=== PATIENT | female | born 1980 | race Caucasian/White ===

== ENCOUNTER 2023-01-30 16:00 | Outpatient (RCR) | payer OTHER, SELFPAY ==
--- NOTE | 2023-01-01 12:52 | HP.PTEVAL ---
Patient's Visit Information BRANDI CHAPMAN is a 42 year old F referred to Physical Therapy by SHERYL HENDERSON with a diagnosis of chronic plantarfasciitis. Date of Evaluation: 01/01/23 Physical Therapist: Lion Mccain, DENITAT, OCS, CSCS - Visit Plan Frequency: 3x /Week Duration: 4-6 Weeks Plan: 3x/week for 3-6 as needed for... 1. US to R PF origin nonthermal. 2. DTR to R PF adn gastroc/soleus area. 3. stretch PF and gastroc/soleus, teach eccentrics when able. 4. TENS with ice if painful at rest. Consider DN, ionto and RPW if improvements not shown in two weeks. Heel lift and night splint benefits educated to patient with pics form shop - Subjective Have insoles due to plantasfasciitis. Taking ibuprofen and stretching and icing adn ball roll and not helping. R foot for 6-7 months of pain insidious onset. Can only vaccuum 15 mintues and could not stand uip. Pain is on heel and back of heal. pain is 9/10 at times and has used crutches. Was typically that bad getting out of bed in am. Two days a go it hurt when she was elevating it and got sharp pain. Sleep is interrupted infrequently. Insoles did not help. Low heal helps. 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 limps through hallways effecting LB. Not walking right. Effects carpenter apprentice. Stretches include calf using a towel or strap and does it with coffee in morning or thouighout day. When it hurts. Holds it 20 seconds. Cannot exercise, cannot walk with . Does bike sometimes. - Pain R foot Pain Intensity (Out of 10): 3 Pain Intensity Range: 0, 9 Comment: worse end of day and first am - Objective Walks with R antalgia avoiding hell strike into PT I. Trasnfers I bed and chair. Walks gingerly but able. Tender to palpation R medial achilles insertion adn into medial lateral calcaneus at PF origin. moderately to max. AROM ankle 0 DF R and 2 on L. PF adn inv/eversion WNL and symmetrical. Painful to DF at achilles. strength is 4/5 DF R and pain with PF 4 and 4+ inv and eversion. 4+ L side. Pes planus B heel and insoles being worn properly today with padding under, asked her to place it over. reflexes 2/3 patella and achilles. Sensation LE WNL to gross lgiht touch. - Balance/Special Test Scores Lower Extremity Functional Score: 28 - Goals Goal 1:: Pateint feel 50% better in overall pain and manageable with home ex. Goal Time Frame: 2-4 Weeks Goal 2:: Pain 2/10 at worst and able to walk without gait deviations Goal Time Frame: 4-6 Weeks Goal 3:: LEFS score 55 Goal Time Frame: 4-6 Weeks Goal 4:: patient able to work without increased foot pain Goal Time Frame: 4-6 Weeks - Rehabilitation Potential Physical Therapy Diagnosis: inflammed R pf needs help managing. Rehabilitation Potential: Fair - Anticipated Interventions Patient/Client Instruction: Educate patient on: Condition, Plan of Care For the Purpose of:: To decrease pain, To increase ROM, To improve nutrient delivery to tissue, To improve muscle performance and motor function, To increase tolerance to activity/condition/position Therapeutic Exercise to Include: Strength training, Flexibilty training, Passive ROM, Active ROM For the Purpose of:: To decrease pain, To decrease swelling/inflammation, To improve nutrient delivery to tissue, To improve muscle performance and motor function, To increase tolerance to activity/condition/position, To improve performance and independence with ADL's, To improve ability of physical actions for home/community/work/leisure, To improve gait and locomotor functions Manual Therapy Techniques to Include: Mobilization, Passive ROM, Soft tissue mobilization For the Purpose of:: To decrease pain, To decrease swelling/inflammation, To increase ROM, To improve nutrient delivery to tissue, To improve muscle performance and motor function, To improve ability of physical actions for home/community/work/leisure, To improve gait and locomotor functions TENS: Yes Cryotherapy (ice pack, ice massage): Yes Ultrasound (thermal/non thermal): Yes - nonthermal For the Purpose of:: To decrease pain, To decrease swelling/inflammation, To improve nutrient delivery to tissue Thank you for the opportunity to evaluate your patient. For Medicare and Medicare HMO plans, please review the plan of care and approve it. It will need to be FAXED BACK to us at [phone] for Medicare purposes. For Medicare only, by signing this I certify the plan of care. Please let me know if there are questions or concerns regarding this plan of care. Physician Signature: Date:
--- NOTE | 2023-01-30 16:50 | HP.PTDCSUM ---
It has been my pleasure to treat BRANDI CHAPMAN referred by SHERYL HENDERSON, with the diagnosis of chronic plantarfasciitis for a total of 12 visit(s). Discharge Date: 01/30/23 Please see the following information for a summary of their discharge status. Subjective: Got a new pair of Hokas. Wearing insoles in with them.Pain shifting to heel from PF. 3/10 today. Pain can go away if she rests enough but stillk fairly constant. Can throb at night for 30 minutes before sleeping. Sleep is OK. Tratments: insoles, new shoes, can't wear night boot, stretching, ice bath, eccentric lowering, band 2x10 with GTB. No f/u with doctor. R foot Pain Intensity (Out of 10): 2 % Improvement: 60 Objective/Function: Good ROM to 6 degrees DF R. Flexibility is good in ankle and foot. Tenderness persists R heel moreso now then PF body. strength 4+/5 in ankle without pain. Heel raises still hurt a little bit. Goal 1:: Pateint feel 50% better in overall pain and manageable with home ex. Goal Progress: Goal Met Goal 2:: Pain 2/10 at worst and able to walk without gait deviations Goal Progress: Progressing, chuck tender Goal 3:: LEFS score 55 Goal Progress: Progressing Goal 4:: patient able to work without increased foot pain Goal Progress: Progressing Plan: d/c, pt to contact doctor regarding next step. Discharge Comments: Pt to contact doctor regarding other options due to slow progress, consider ionto or shockwave if no other good options. If there are questions or concerns regarding this patient's physical therapy, please feel free to call me at [phone]. Thank you for the referral of this patient. Sincerely, Lion Mccain, DPT, OCS, CSCS Balance/Gait/Functional tests - Balance/Special Test Scores Lower Extremity Functional Score: 42
== END 2023-01-30 19:00 | disposition home or self-care (01) ==
LOC: PT 16:00
DX: M72.2 Plantar fascial fibromatosis (principal)
CPT/HCPCS: 97035; 97110; 97140; 97161; 97164

== ENCOUNTER → 2024-05-02 | Outpatient (CLI) | payer OTHER, SELFPAY ==
--- NOTE | 2024-05-02 14:06 | CT_ITS ---
STUDY: CT FACIAL BONES WITHOUT CONTRAST REASON FOR EXAM: Female, 43 years old. SINUSITIS RADIATION DOSAGE (If Supplied By Facility): CTDIvol = ( 33.06 ) mGy, DLP = ( 866.91 ) mGycm TECHNIQUE: The patient was scanned in a multi detector CT scanner. Sagittal and coronal images were reconstructed. Individualized dose optimization techniques were used for this CT. COMPARISON: None. FINDINGS: Normal soft tissue structures. Normal orbital wright and orbital contents. Normal nasal bones and anterior nasal spine. Normal facial bones. There is no demonstrated fracture. There is partial opacification of the maxillary sinuses bilaterally more prominent on the right side. The ostiomeatal complexes are patent. Mild degree of mucosal thickening of the right sphenoid sinus. CT/Sinus/Facial Bone IMPRESSION: Partial opacification of the maxillary sinuses bilaterally more prominent on the right side. The ostiomeatal contact is a patent bilaterally. Mild degree of mucosal thickening of the right sphenoid sinus. Electronically Signed: Ba Patrick MD at 14:44 EDT ,
== END | disposition home or self-care (01) ==
PROVIDERS: PCP Internal Medicine; Referring Provider Otolaryngology; Visit Provider Otolaryngology
DX: J32.9 Chronic sinusitis, unspecified (principal)
CPT/HCPCS: 70486

== ENCOUNTER 2024-06-16 14:00 | Outpatient (RCR) | payer OTHER, SELFPAY ==
--- NOTE | 2024-02-29 09:21 | HP.PTEVAL_ITS ---
Patient's Visit Information Visit Information Visit Information: BRANDI CHAPMAN is a 43 year old F referred to Physical Therapy by GARY FERNANDEZ with a diagnosis of STRESS URINARY INCONTINENCE. 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 Disability: NO Present symptoms: URINARY INCONTINENCE. WEARING PADS ALMOST ALL THE TIME. Present since: YEARS AGO Pain Scale: PATIENT DENIES PAIN Is it getting better, worse or staying the same: GETTING WORSE Commenced as a result of: NO APPARENT REASON Symptoms at onset: LESS URINARY LEAKING. Worse: SNEEZING, COUGHING, EXERCISE, INTERCOURSE, SQUATTING, BENDING, HEARING WATER, SOMETIMES JUST THINKING ABOUT GOING TO THE BATHROOM, STARTING TO unbutton PANTS. Better: NOTHING Disturbed sleep: GETTING UP AT NIGHT TO URINATE 0-1 TIMES Previous history/Previous treatment: UNREMARKABLE Treatment this episode: 2 OBGYN VISITS. Coughing/sneezing/straining: POSITIVE FOR UI Gait: NORMAL How long can you delay the need to urinate: SOMTIMES NOT AT ALL Prolapse (Falling out feeling): NO Frequency of Urination: ON AVERAGE EVERY 2 HRS Ability to stop urine flow: CAN DISTRUPT THE FLOW Ability to initiate urine stream: YES Dyspareunia: SOMETIMES Bowel Incontinence: NO - IBS Accidents: NO Unexplained weight loss: NO Imaging: NO PMH/Recent major surgery: IBS, ALLERGIES, SLEEP MEDICATION. H/O KIDNEY STONES. CHRONIC LBP. CHRONIC NECK PAIN. H/O PLANTAR FASCITIS R FOOT. Objective Objective: Sitting/Standing Posture: ANTERIOR PELVIC TILT. NO RELEVANT LATERAL SHIFT. Active Correction of posture: NE Other Observations: INDEP GAIT AND TRANSFERS Sensory deficit: LYNDON LE LIGHT TOUCH SENSATION GROSSLY INTACT AND SYMMETRICAL ROM deficit: LYNDON LE HS, GASTROC-SOLEUS COMPLEX, AND HIP ROTATOR TIGHTNESS. L HIP IR TIGHTNESS > R. Motor deficit: LYNDON LE'S GROSSLY 5/5 EXCEPT HIP ROTATORS 4/5 Dural Signs: NEGATIVE LYNDON LE'S. Lumbar mvmt loss: flex - MIN ext - MIN R SG - MIN L SG - MIN PATIENT DENIES PAIN WITH LUMBAR ROM TESTING ALL PLANES. REPORTS MUSCLE SORENESS FROM GYM EX'S. PERSONAL TRAINING WITH AAKASH HERE AT . STARTED NOVEMBER 2023. BACK PAIN HAS BEEN STAYING THE SAME SINCE STARTING. Core strength: FAIR Palpation: HAVING HEAVY MENSTRAL CYCLE CURRENTLY. DEFERRED PELVIC FLOOR TESTING TO NEXT VISIT. FUNCTIONAL SCREEN: Incontinence Impact Questionnaire Score: 4 Urogenital Distress Inventory Score: 8 Balance/Special Test Scores Oswestry Neck Score: 20 Anticipated Interventions Patient/Client Instruction: Educate patient on: Condition, Plan of Care and Risk Factors For the Purpose of:: To improve self management Therapeutic Exercise to Include: Strength training, Postural training, Flexibilty training and Neuromotor development For the Purpose of:: To improve muscle performance and motor function, To improve ability of physical actions for home/community/work/leisure and To increase flexibility/ROM Text: Thank you for the opportunity to evaluate your patient. For Medicare and Medicare HMO plans, please review the plan of care and approve it. It will need to be FAXED BACK to us at [phone] for Medicare purposes. For Medicare only, by signing this I certify the plan of care. Please let me know if there are questions or concerns regarding this plan of care. Physician Signature: Date:
--- NOTE | 2024-02-29 09:33 | HP.PTEVAL2 ---
Patient's Visit Information Visit Information Visit Information: BRANDI CHAPMAN is a 43 year old F referred to Physical Therapy by GARY FERNANDEZ with a diagnosis of cervicogenic syndrome. Date of Evaluation: 02/29/24 Physical Therapist: LATASHA Shaw Visit Plan Frequency: 2x /Week Duration: 6 Weeks Plan: 2X/ week for 6 weeks for stretching of the levator, trap, lats, rhomboids, postural and scapular strength, some MT for first few visits if needed for levator, occiput and trap, with HEP HEP: Levator stretch holding onto bottom of the chair, scapular retraction, counter top lat stretch, pole rhomboid stretch, green band mid rows Subjective Subjective: Pt has been having a lot of neck pain. It seems to be upper shoulder and traveling up the neck into her head. She has been having more ARIZA and disrupting her sleep. She has had ARIZA several times a week. She had one over the weekend for 3 days. She has been rubbing it a lot. She has ARIZA 2-3 X/week. She reports that she can not get her neck in a comfortable position. This all started a few months ago with a lot of stress at the time. 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 She has no N&T. She is a combination of sitting and standing and driving a lot. Dishes, cooking and looking down irritate her. Lifting things irritate it. Pain Neck pain: Intensity: 5 ARIZA: Intensity: 2 Objective Objective: L handed R 50 and L 60# C-spine AROM: Flex 100%, ext 75, SB B 75%, Rot B 75% UE AROM: tight at end range flexion, IR with slightly decreased ROM UE MMT: R shoulder flex 10.1 and L 11.1 R shoulder ABD 10.1 and 11.2 R shoulder ER 16.4 and L 15.8 R shoulder IR 13.4 and L 14.6 Tight and painful with arms behind head Bicep DTR 2+/3 B Posture: slouched rounded shoulder blades, FW head, slightly protracted shoulder blades tender along the trap and levator B as well as occiput area Lats were tight B Goals Goal 1:: I HEP Goal Time Frame: 6-8 Weeks Goal 2:: Sit with more upright posture (no FW head or rounded shoulders) Goal Time Frame: 6-8 Weeks Goal 3:: Decrease neck and shoulder pain by 50% Goal Time Frame: 6-8 Weeks Goal 4:: Increase scapular strength so that the pt feels that she can keep her head up more upright in a chair Goal Time Frame: 6-8 Weeks Rehabilitation Potential Rehabilitation Potential: Good Anticipated Interventions Patient/Client Instruction: Educate patient on: Condition and Plan of Care For the Purpose of:: To decrease pain, To increase ROM, To improve nutrient delivery to tissue, To improve muscle performance and motor function, To improve ability to perform ADL's, To increase tolerance to activity/condition/position, To improve ability of physical actions for home/community/work/leisure, To improve health of tissue, To decrease soft tissue restriction and To increase flexibility/ROM Therapeutic Exercise to Include: Strength training, Endurance training, Body mechanics, Postural training, Flexibilty training, Neuromotor development, Active ROM and Scapular Strength/Stabilization For the Purpose of:: To decrease pain, To increase ROM, To improve nutrient delivery to tissue, To improve muscle performance and motor function, To improve ability to perform ADL's, To increase tolerance to activity/condition/position, To improve gait and locomotor functions, To improve health of tissue, To decrease soft tissue restriction and To increase flexibility/ROM Manual Therapy Techniques to Include: Passive ROM and Soft tissue mobilization For the Purpose of:: To decrease pain, To increase ROM, To improve nutrient delivery to tissue, To improve muscle performance and motor function, To increase tolerance to activity/condition/position, To improve health of tissue, To decrease soft tissue restriction and To increase flexibility/ROM text: Thank you for the opportunity to evaluate your patient. For Medicare and Medicare HMO plans, please review the plan of care and approve it. It will need to be FAXED BACK to us at [phone] for Medicare purposes. For Medicare only, by signing this I certify the plan of care. Please let me know if there are questions or concerns regarding this plan of care. Physician Signature: Date:
--- NOTE | 2024-05-16 09:40 | HP.PTDCSUM ---
Discharge Summary D/C summary: It has been my pleasure to treat BRANDI CHAPMAN referred by GARY FERNANDEZ, with the diagnosis of STRESS URINARY INCONTINENCE for a total of 1 visit(s). Discharge Date: Please see the following information for a summary of their discharge status. D/C Information d/c sentence: If there are questions or concerns regarding this patient's physical therapy, please feel free to call me at [phone]. Thank you for the referral of this patient. Sincerely, Kyleigh Moran, MPT Balance/Gait/Functional tests Balance/Special Test Scores Oswestry Neck Score: 20 Quick DASH Score: 34.0900
--- NOTE | 2024-06-29 21:00 | HP.PTEVAL ---
Patient's Visit Information Visit Information Visit Information: BRANDI CHAPMAN is a 43 year old F referred to Physical Therapy by GARY FERNANDEZ with a diagnosis of STRESS URINARY INCONTINENCE. Date of Evaluation: 02/22/24 Physical Therapist: Sigrid Paulino PT, Cert MDT Visit Plan Frequency: 1x/Week Duration: 2-4 Months Plan: PF THERAPY FOR STRENGTHENING, LENGTHENING/RELAXATION AND ENDURANCE TRAINING. URINARY URGE AND FREQUENCY EDUCATION. HEALTHY BLADDER HABIT EDUCATION. TRAINING IN COORDINATION OF PELVIC FLOOR MUSCULATURE WITH HIP AND CORE (TRANSVERSE ABDOMINUS) MUSCULATURE. CORE STRENGTHENING. LYNDON LE ROM, STRETCHING AND STRENGTHENING. TRAINING IN ABDOMINAL CAVITY PRESSURE MGMT WITH ADL'S. 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 Disability: NO Present symptoms: URINARY INCONTINENCE. WEARING PADS ALMOST ALL THE TIME. Present since: YEARS AGO Pain Scale: PATIENT DENIES PAIN Is it getting better, worse or staying the same: GETTING WORSE Commenced as a result of: NO APPARENT REASON Symptoms at onset: LESS URINARY LEAKING. Worse: SNEEZING, COUGHING, EXERCISE, INTERCOURSE, SQUATTING, BENDING, HEARING WATER, SOMETIMES JUST THINKING ABOUT GOING TO THE BATHROOM, STARTING TO unbutton PANTS. Better: NOTHING Disturbed sleep: GETTING UP AT NIGHT TO URINATE 0-1 TIMES Previous history/Previous treatment: UNREMARKABLE Treatment this episode: 2 OBGYN VISITS. Coughing/sneezing/straining: POSITIVE FOR UI Gait: NORMAL How long can you delay the need to urinate: SOMTIMES NOT AT ALL Prolapse (Falling out feeling): NO Frequency of Urination: ON AVERAGE EVERY 2 HRS Ability to stop urine flow: CAN DISTRUPT THE FLOW Ability to initiate urine stream: YES Dyspareunia: SOMETIMES Bowel Incontinence: NO - IBS Accidents: NO Unexplained weight loss: NO Imaging: NO PMH/Recent major surgery: IBS, ALLERGIES, SLEEP MEDICATION. H/O KIDNEY STONES. CHRONIC LBP. CHRONIC NECK PAIN. H/O PLANTAR FASCITIS R FOOT. Objective Objective: Sitting/Standing Posture: ANTERIOR PELVIC TILT. NO RELEVANT LATERAL SHIFT. Active Correction of posture: NE Other Observations: INDEP GAIT AND TRANSFERS Sensory deficit: LYNDON LE LIGHT TOUCH SENSATION GROSSLY INTACT AND SYMMETRICAL ROM deficit: LYNDON LE HS, GASTROC-SOLEUS COMPLEX, AND HIP ROTATOR TIGHTNESS. L HIP IR TIGHTNESS > R. Motor deficit: LYNDON LE'S GROSSLY 5/5 EXCEPT HIP ROTATORS 4/5 Dural Signs: NEGATIVE LYNDON LE'S. Lumbar mvmt loss: flex - MIN ext - MIN R SG - MIN L SG - MIN PATIENT DENIES PAIN WITH LUMBAR ROM TESTING ALL PLANES. REPORTS MUSCLE SORENESS FROM GYM EX'S. PERSONAL TRAINING WITH AAKASH HERE AT . STARTED NOVEMBER 2023. BACK PAIN HAS BEEN STAYING THE SAME SINCE STARTING. Core strength: FAIR Palpation: HAVING HEAVY MENSTRAL CYCLE CURRENTLY. DEFERRED PELVIC FLOOR TESTING TO NEXT VISIT. FUNCTIONAL SCREEN: Incontinence Impact Questionnaire Score: 4 Urogenital Distress Inventory Score: 8 Balance/Special Test Scores Oswestry Neck Score: 20 Quick DASH Score: 34.0900 Goals Goal 1:: DECREASE URINARY LEAKAGE EPISODES TO ONE OR LESS PER DAY Goal Time Frame: 8-12 Weeks Goal 2:: PATIENT WILL SUCCESSFULLY DELAY VOIDING LONG NEEDED WHEN URGENCY OCCURS TO SUCCESSFULLY MAKE IT TO THE BATHROOM. Goal Time Frame: 6-8 Weeks Goal 3:: PATIENT WILL DEMONSTRATE/COMMUNICATE 10 CONSISTENT AND CONSECUTIVE 10 SECOND PELVIC FLOOR MUSCLE CONTRACTIONS TO DEMONSTRATE IMPROVED PELVIC FLOOR ENDURANCE. Goal Time Frame: 8-12 Weeks Goal 4:: DEVELOP HEALTHY FLUID INTAKE HABITS WITH FLUID INTAKE OF ? BODY WEIGHT IN OUNCES PER DAY AND 2/3 BEING WATER. Goal Time Frame: 4-6 Weeks Goal 5:: NORMALIZE VOIDING FREQUENCEY TO EVERY 3-4 HOURS. Goal Time Frame: 6-8 Weeks Goal 6:: PATIENT WILL BE INDEP WITH A HEP/HOME INSTRUCTIONS FOR CONTINUED IMPROVEMENT ONCE FORMAL PHYSICAL THERAPY CONCLUDES. Goal Time Frame: 8-12 Weeks Rehabilitation Potential Physical Therapy Diagnosis: SX'S OF STRESS AND URGE INCONTINENCE. CORE AND PELVIC FLOOR WEAKNESS. LYNDON LE TIGHTNESS. Rehabilitation Potential: Good Anticipated Interventions Patient/Client Instruction: Educate patient on: Condition, Plan of Care and Risk Factors For the Purpose of:: To improve self management Therapeutic Exercise to Include: Strength training, Postural training, Flexibilty training and Neuromotor development For the Purpose of:: To improve muscle performance and motor function, To improve ability of physical actions for home/community/work/leisure and To increase flexibility/ROM Text: Thank you for the opportunity to evaluate your patient. For Medicare and Medicare HMO plans, please review the plan of care and approve it. It will need to be FAXED BACK to us at [phone] for Medicare purposes. For Medicare only, by signing this I certify the plan of care. Please let me know if there are questions or concerns regarding this plan of care. Physician Signature: Date:
--- NOTE | 2024-06-29 22:40 | HP.PTDCSUM ---
Discharge Summary D/C summary: It has been my pleasure to treat BRANDI CHAPMAN referred by GARY FERNANDEZ, with the diagnosis of STRESS URINARY INCONTINENCE for a total of 9 visit(s). Discharge Date: 06/16/24 Please see the following information for a summary of their discharge status. Subjective Subjective: PATIENT REPORTS SHE IS DOING A LOT BETTER. SHE STATES I STILL HAVE SOME URGENCY BUT I HAVEN'T HAD AN EPISODE WHERE I COULDN'T CONTROL IT IN A LONG TIME. THERE IS STILL SOME LEAKING BUT WAY LESS. HUGE HUGE AMOUNTS OF PROGRESS. SHE STATES I AM SO EXCITED TO BE ABLE TO SNEEZE AND NOT PEE ON MYSELF. SHE DENIES PAIN RELATED TO HER URINARY INCONTINENCE. 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 SHE RECENTLY FINISHED PT FOR HER NECK AND R SHLD. Overall Improvement % Improvement: 80 Objective Objective/Function: PATIENT WAS SEEN TODAY FOR RE-ASSESSMENT OF PROGRESS TOWARD THE SET PT GOALS AND THE NEED FOR FURTHER PHYSICAL THERAPY VS READINESS FOR DISCHARGE. THIS PATIENT HAS RESPONDED REALLY WELL TO PHYSICAL THERAPY FOR BLADDER RETRAINING, PELVIC FLOOR STRENGTHEING, POSTURE TRAINING AND THE REST OF THE BELOW PLAN OF CARE. SHE IS NOW INDEP WITH A HEP AND SHE IS APPROPRIATE FOR AND AGREEABLE TO DISCHARGE. FUNCTIONAL SCREEN: Incontinence Impact Questionnaire Score: 1 Urogenital Distress Inventory Score: 3 Goals Goal 1:: DECREASE URINARY LEAKAGE EPISODES TO ONE OR LESS PER DAY Goal Progress: Progressing Goal 2:: PATIENT WILL SUCCESSFULLY DELAY VOIDING LONG NEEDED WHEN URGENCY OCCURS TO SUCCESSFULLY MAKE IT TO THE BATHROOM. Goal Progress: Goal Met Goal 3:: PATIENT WILL DEMONSTRATE/COMMUNICATE 10 CONSISTENT AND CONSECUTIVE 10 SECOND PELVIC FLOOR MUSCLE CONTRACTIONS TO DEMONSTRATE IMPROVED PELVIC FLOOR ENDURANCE. Goal Progress: Goal Met Goal 4:: DEVELOP HEALTHY FLUID INTAKE HABITS WITH FLUID INTAKE OF ? BODY WEIGHT IN OUNCES PER DAY AND 2/3 BEING WATER. Goal Progress: Progressing Goal 5:: NORMALIZE VOIDING FREQUENCEY TO EVERY 3-4 HOURS. Goal Progress: Progressing Goal 6:: PATIENT WILL BE INDEP WITH A HEP/HOME INSTRUCTIONS FOR CONTINUED IMPROVEMENT ONCE FORMAL PHYSICAL THERAPY CONCLUDES. Goal Progress: Goal Met Plan Plan: PF THERAPY FOR STRENGTHENING, LENGTHENING/RELAXATION AND ENDURANCE TRAINING. URINARY URGE AND FREQUENCY EDUCATION. HEALTHY BLADDER HABIT EDUCATION. TRAINING IN COORDINATION OF PELVIC FLOOR MUSCULATURE WITH HIP AND CORE (TRANSVERSE ABDOMINUS) MUSCULATURE. CORE STRENGTHENING. LYNDON LE ROM, STRETCHING AND STRENGTHENING. TRAINING IN ABDOMINAL CAVITY PRESSURE MGMT WITH ADL'S. D/C Information d/c sentence: If there are questions or concerns regarding this patient's physical therapy, please feel free to call me at [phone]. Thank you for the referral of this patient. Sincerely, Sigrid Paulino, PT, Cert MDT Balance/Gait/Functional tests Balance/Special Test Scores Oswestry Neck Score: 20 Quick DASH Score: 34.0900 Improvement % Improvement: 80
== END 2024-06-16 19:00 | disposition home or self-care (01) ==
LOC: PT 14:00
PROVIDERS: PCP Internal Medicine
DX: M62.838 Other muscle spasm (principal)
CPT/HCPCS: 97110; 97140; 97162; 97530

== ENCOUNTER 2024-12-11 16:50 | Outpatient (RCR) | payer OTHER, SELFPAY ==
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
== END 2024-12-11 19:00 | disposition home or self-care (01) ==
LOC: PT 16:50
PROVIDERS: PCP Internal Medicine; Referring Provider Neurological Surgery; Visit Provider Neurological Surgery
DX: M46.1 Sacroiliitis, not elsewhere classified (principal)
CPT/HCPCS: 97110; 97162

== ENCOUNTER 2025-05-19 10:00 | Outpatient (RCR) | payer OTHER, SELFPAY ==
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
--- NOTE | 2025-06-04 10:41 | HP.PT.NRP ---
Patient Information Patient Information: BRANDI CHAPMAN was seen in my office for initial evaluation on 01/09/25. The following Plan of Care was established for this patient: POC Established Initial Frequency: 2x /Week Initial Duration: 12 WEEKS Anticipated Interventions Patient/Client Instruction: Educate patient on: Condition and Plan of Care For the Purpose of:: To decrease pain, To improve muscle performance and motor function, To improve ability to perform ADL's, To increase tolerance to activity/condition/position, To improve ability of physical actions for home/community/work/leisure, To improve gait and locomotor functions, To improve health of tissue, To decrease soft tissue restriction, To increase flexibility/ROM, To reduce risk of recurrence and To improve tolerance to ADL's Therapeutic Exercise to Include: Strength training, Body mechanics, Postural training, Flexibilty training, Active ROM and Dynamic Lumbar Stabilization For the Purpose of:: To decrease pain, To increase ROM, To improve nutrient delivery to tissue, To increase oxygenation perfusion, To improve muscle performance and motor function, To improve ability to perform ADL's, To increase tolerance to activity/condition/position, To improve ability of physical actions for home/community/work/leisure, To improve gait and locomotor functions, To improve health of tissue, To decrease soft tissue restriction, To increase flexibility/ROM and To improve tolerance to ADL's TENS: Yes IF ES: Yes Cryotherapy (ice pack, ice massage): Yes Thermo therapy (hot pack): Yes For the Purpose of:: To decrease pain, To increase ROM, To improve health of tissue and To decrease soft tissue restriction Last Seen Last Seen: This patient was last seen in our office . Pertinent comments regarding their Physical therapy will appear below: Patient had SI fusion doing well no pain and resumed most functional activities thus d/c At this point I will be discontinuing this patient from physical therapy. I would be happy to see this patient again in the future if found appropriate by the physician. Thank you! Virgil Emery, PT, Cert MDT, OCS Balance/Gait/Functional tests Balance/Special Test Scores Oswestry Low Back Score: 17
== END 2025-05-19 19:00 | disposition home or self-care (01) ==
LOC: PT 10:00
PROVIDERS: PCP Internal Medicine; Referring Provider Neurological Surgery; Visit Provider Neurological Surgery
DX: M46.1 Sacroiliitis, not elsewhere classified (principal)
CPT/HCPCS: 97110; 97113; 97162; 97530

== ENCOUNTER 2025-07-02 09:00 | Outpatient (RCR) | payer OTHER, SELFPAY ==
--- NOTE | 2025-05-26 14:55 | HP.PTEVAL ---
Patient's Visit Information Visit Information Visit Information: BRANDI CHAPMAN is a 44 year old F referred to Physical Therapy by GRECIA Eubanks with a diagnosis of CHONDROMALACIA LYNDON KNEES AND WEAKNESS. Date of Evaluation: 05/26/25 Physical Therapist: Sigrid Paulino, PT, Cert MDT Visit Plan Frequency: 2x /Week Duration: 4-6 Weeks Plan: AQUATIC THERAPY AND HEP INSTRUCTION FOR LYNDON KNEE PAIN RELIEF INCLUDING HIP, KNEE AND ANKLE ROM, STRETCHING AND STRENGTHENING. Subjective Subjective: Work/Leisure: [employer]. Present symptoms: LYNDON KNEE PAIN R>L - PATIENT REPORTS THE PAIN IS IN THE FRONT AND BACK OF BOTH KNEES. Present since: MARCH 2025 WHEN STARTED GETTING BACK TO NORMAL ACTIVITY AFTER BACK SURGERY (SI JT FUSION) Pain Scale: R KNEE 3-8/10, L KNEE 2-6/10 Currently: R KNEE 4/10, L KNEE 2/10 Is it getting better, worse or staying the same: STAYING THE SAME Commenced as a result of: INACTIVITY FROM THE SURGERY THEN TRYING TO DO TOO MUCH TO FAST ON TRIP TO [place] Worse: STAIRS, KNEELING, RISING FROM SITTING, ANYTHING THAT REQUIRES KNEE BENDING - I CAN'T EVEN CLEAN THE BATHROOM. Better: SITTING Disturbed sleep: YES Previous history/Previous treatment: R KNEE PAIN LAST YEAR - DX'D WITH CHONDROMALACIA AND PT IN [place] (AT THAT TIME SOME OF THE EX'S MADE IT WORSE AND I DIDN'T FEEL LIKE I WAS IMPROVED WHEN FINISHED). PATIENT REPORTS SHE CONTINUED SOME OF THE KNEE EX'S THEN STARTED HAVING BACK PROBLEMS. INCORPORTED SOME OF THE KNEE EX'S INTO HER BACK PT. THIS PAIN IS MUCH WORSE THAN LAST YEAR. CORTISONE INJECTION R KNEE AUG 2024 - NO EFFECT AT ALL. Treatment this episode: ICE - NO EFFECT. POOL EX'S JANUARY 2025 THROUGH MAY 19 2025 FOR REHAB POST SI JT FUSION 12/25/24 WITH NE ON KNEES OVER-ALL. Gait: SHOOTING PAIN INITIATING GAIT. PAIN WALKING. AT TIMES KNEE PAIN CAUSES LIMPING AND AT TIMES PLANTAR FASCITIS CAUSES LIMPING. LESS LIMPING AND PAIN AFTER STRETCHING AND WALKING FOR AWHILE TYPICALLY. MORE LIMPING AND PAIN ON R>L AND IN THE MORNINGS. Bowel or Bladder Dysfunction: NO. DENIES UI AND BOWEL INCONTINENCE Unexplained weight loss: NO Imaging: HAS HAD LYNDON KNEE X-RAYS. HAS NOT HAD KNEE MRI'S. Objective Objective: THIS PATIENT AMBULATES INDEP'LY INTO PT WITHOUT ANY AD'S WITH FAIR CADANCE AND WITHOUT LOB. SHE IS INDEP WITH TRANSFERS SIT TO STAND, SIT TO SUPINE AND REVERSE. ROM: SHE IS UNABLE TO SQUAT OR KNEEL. IN STANDING SHE IS UNABLE TO BEND HER KNEES > 65 DEG. IN SUPINE R KNEE AROM: 0-0-104, L KNEE AROM: 0-0-107. PATIENT INITIALLY HAS DIFFICULTY AND C/O PAIN WITH GETTING KNEES FULLY EXTENDED AND HAS C/O PAIN WITH KNEE FLEXION. GOOD LYNDON PATELLAR MOBILITY AND PATIENT DENIES PAIN WITH THERAPIST MOBILIZATION AND TESTING. TIGHT LYNDON QUADS, HS AND CALVES. STRENGTH: HIPS: 4/5, KNEES 4/5, ANKLES 5/5 (W/MMT IN MID-RANGE). PATIENT C/O PAIN WITH LYNDON LE MMT'ING ALL JOINTS - NW Balance/Special Test Scores Lower Extremity Functional Score: 21 Goals Goal 1:: DECREASE C/O LYNDON KNEE PAIN BY AT LEAST 50% TO EASE ADL'S. Goal Time Frame: 4-6 Weeks Goal 2:: PATIENT WILL HAVE INCREASED LYNDON KNEE ROM IN STANDING BY AT LEAST 20 DEG TO ALLOW FOR INCREASED BENDING IN STANDING Goal Time Frame: 4-6 Weeks Goal 3:: PATIENT WILL HAVE LYNDON KNEE ROM IN LYING = TO AT LEAST 0-0-120 Goal Time Frame: 4-6 Weeks Goal 4:: PATIENT WILL BE ABLE TO ASCEND AND DESCEND STAIRS RECIPROCALLY WITH ONE HANDRAIL WITHOUT LIMITATION Goal Time Frame: 4-6 Weeks Goal 5:: INDEP HOME AND/OR WATER EX PROGRAMS FOR CONTINUED IMPROVEMENT ONCE FORMAL PHYSICAL THERAPY CONCLUDES. Goal Time Frame: 4-6 Weeks Rehabilitation Potential Physical Therapy Diagnosis: LYNDON KNEE STIFFNESS AND WEAKNESS LIMITING ADL'S. Rehabilitation Potential: Fair Anticipated Interventions Patient/Client Instruction: Educate patient on: Condition, Plan of Care and Risk Factors For the Purpose of:: To improve self management Therapeutic Exercise to Include: Strength training, Flexibilty training, Gait and locomotor training, Neuromotor development and In an aquatic setting For the Purpose of:: To decrease pain, To improve muscle performance and motor function, To improve ability to perform ADL's, To increase tolerance to activity/condition/position, To improve ability of physical actions for home/community/work/leisure, To improve gait and locomotor functions, To increase flexibility/ROM and To improve self management Text: Thank you for the opportunity to evaluate your patient. For Medicare and Medicare HMO plans, please review the plan of care and approve it. It will need to be FAXED BACK to us at [phone] for Medicare purposes. For Medicare only, by signing this I certify the plan of care. Please let me know if there are questions or concerns regarding this plan of care. Physician Signature: Date:
--- NOTE | 2025-07-02 09:54 | HP.PTDCSUM_ITS ---
Discharge Summary D/C summary: It has been my pleasure to treat BRANDI CHAPMAN referred by GRECIA Eubanks, with the diagnosis of CHONDROMALACIA LYNDON KNEES AND WEAKNESS for a total of 10 visit(s). Discharge Date: 07/02/25 Please see the following information for a summary of their discharge status. Subjective Subjective: PATIENT REPORTS HER L KNEE IS 100% BETTER SINCE STARTING PT AND HAVING L KNEE INJECTION ABOUT 3 WKS AGO. SHE REPORTS HER R KNEE IS BETTER TOO OVER-ALL SINCE STARTING THERAPY AND HAVING AN INJECTION BUT SHE THINKS THE INJECTION IS WEARING OFF. SHE HAS AN ORTHO FOLLOW UP NEXT WEEK. REPORTS SHE HAS [employer] MEMBERSHIP AND DID HER INDEP POOL PROGRAM TODAY. Pain R knee: Pain Intensity (Out of 10): 3 L KNEE: Pain Intensity (Out of 10): 0 Overall Improvement % Improvement: 80 Objective Objective/Function: PATIENT WAS SEEN TODAY FOR RE-ASSESSMENT OF PROGRESS TOWARD THE SET PT GOALS AND THE NEED FOR FURTHER PHYSICAL THERAPY VS READINESS FOR DISCHARGE. THIS PATIENT HAS DONE REALLY WELL WITH AQUATIC THERAPY FOR HER KNEES. ALL GOALS HAVE BEEN MET AND SHE IS APPROPRIATE FOR AND AGREEABLE TO DISCHARGE. UPON EXAM TODAY: ROM: IN STANDING SHE IS NOW ABLE TO BEND HER KNEES TO 80 DEG MAKING IT EASIER TO PICK THINGS UP FROM THE FLOOR WITH GOOD BODY MECHANICS. IN SUPINE R KNEE AROM: 0-0-121, L KNEE AROM: 0-0-126. SHE IS ALSO NOW ABLE TO QUICKLY AND EASILY ABLE TO GET HER KNEES INTO FULL EXTENSION IN LYNG WITHOUT GUARDING OR C/O PAIN. STEPS: ABLE TO ASCEND AND DESCEND STEPS RECIPROCALLY WITH ZERO TO ONE HR UNLIMITED. SHE REPORTS SHE RECENTLY WAS ABLE TO GO UP AND DOWN STEPS ABOUT 30 TIMES IN ONE DAY. Goals Goal 1:: DECREASE C/O LYNDON KNEE PAIN BY AT LEAST 50% TO EASE ADL'S. Goal Progress: Goal Met Goal 2:: PATIENT WILL HAVE INCREASED LYNDON KNEE ROM IN STANDING BY AT LEAST 20 DEG TO ALLOW FOR INCREASED BENDING IN STANDING Goal Progress: Progressing Goal 3:: PATIENT WILL HAVE LYNDON KNEE ROM IN LYING = TO AT LEAST 0-0-120 Goal Progress: Goal Met Goal 4:: PATIENT WILL BE ABLE TO ASCEND AND DESCEND STAIRS RECIPROCALLY WITH ONE HANDRAIL WITHOUT LIMITATION Goal Progress: Goal Met Goal 5:: INDEP HOME AND/OR WATER EX PROGRAMS FOR CONTINUED IMPROVEMENT ONCE FORMAL PHYSICAL THERAPY CONCLUDES. Goal Progress: Goal Met Plan Plan: D/C TO INDEP HOME AND WATER EX PROGRAMS. D/C Information d/c sentence: If there are questions or concerns regarding this patient's physical therapy, please feel free to call me at [phone]. Thank you for the referral of this patient. Sincerely, Sigrid Paulino, PT, Cert MDT Balance/Gait/Functional tests Balance/Special Test Scores Lower Extremity Functional Score: 57 Improvement % Improvement: 80
== END 2025-07-02 10:08 | disposition home or self-care (01) ==
LOC: PT 09:00
PROVIDERS: PCP Internal Medicine; Referring Provider Physician Assistant; Visit Provider Physician Assistant
DX: M94.261 Chondromalacia, right knee (principal); M94.262 Chondromalacia, left knee; R53.1 Weakness
CPT/HCPCS: 97113; 97162; 97530